=== PATIENT | female | born 1955 | race Caucasian/White ===

== ENCOUNTER 2019-12-15 10:02 | Emergency (ER) | payer BC ==
[~2019-12-15] VITALS: Ht 162.6 cm; Wt 79.4 kg
[~2019-12-15 10:02] MED LIST: ADVAIR; ALLEGRA; CRESTOR; FISH OIL; KEFLEX500 MG PO; PANTOPRAZOLE; SINGULAIR; ZOLOFT; [UNRECOGNIZED DRUG - OTHER]
[2019-12-15] MEDS ORDERED: PROTONIX40 M2 PO (10:20)
[2019-12-15] MEDS ORDERED: ZOLOFT50 M1 PO (10:21)
[2019-12-15] MEDS ORDERED: GABAPENTIN100 MG PO (10:21)
[2019-12-15] MEDS ORDERED: LIPITOR10 MG PO (10:21)
[2019-12-15 10:43] LABS: ABSOLUTE EOSINOPHILS 0.1 thou/uL (0.0-0.7); ABSOLUTE LYMPHOCYTES 1.1 thou/uL (0.8-5.3); ABSOLUTE MONOCYTES 0.7 thou/uL (0.0-1.2); ABSOLUTE NEUTROPHILS 9.3 thou/uL (1.6-8.1); BASOPHILS 0.4 %; EOSINOPHILS 0.7 %; HEMATOCRIT 40.7 % (37.0-47.0); MCH 31.3 pg (26.0-34.0); MCHC 34.3 g/dL (28.0-37.0); MCV 91.3 fL (80.0-100.0); MONOCYTES 5.9 %; MPV 7.8 fl. (7.2-11.1); NUCLEATED RBCS 0 /100WBC; PLATELET COUNT* 303 thou/uL (150-400); RBC 4.46 mil/uL (4.20-5.00); RDW-CV 13.8 % (10.5-14.5); WBC 11.2 thou/uL (4.0-11.0)
[2019-12-15 10:54] LABS: CALCIUM 8.5 mg/dL (8.5-10.1); CREATININE 0.9 mg/dL (0.6-1.3); POTASSIUM 4.1 mmol/L (3.5-5.1)
[2019-12-15 10:58] LABS: URINE BILIRUBIN NEGATIVE (Negative); URINE BLOOD 3+ (Negative); URINE CLARITY CLEAR; URINE COLOR YELLOW; URINE GLUCOSE-RANDOM NEGATIVE (Negative); URINE KETONES NEGATIVE (Negative); URINE LEUKOCYTES-REFLEX NEGATIVE (Negative); URINE NITRITE-REFLEX NEGATIVE (Negative); URINE PROTEIN NEGATIVE (Negative); URINE UROBILINOGEN 0.2 E.U./dl (0.2-1.0)
[2019-12-15 10:58] LABS: ALBUMIN 3.5 g/dL (3.4-5.0); TOTAL BILIRUBIN 0.3 mg/dL (<0.1-1.0); TOTAL PROTEIN 7.1 g/dL (6.4-8.2)
[2019-12-15 11:01] LABS: BACTERIA-REFLEX 1-9 Few /HPF (None Seen); CASTS None Seen /LPF (None Seen); CRYSTALS None Seen /LPF (None Seen); MUCUS 4-6 Moderate strn/LPF (None Seen); SQUAMOUS 4-10 Moderate /LPF (0-3); URINE WBC-REFLEX 0-5 Rare /HPF (0-5)
[2019-12-15] MEDS ORDERED: FLAGYL500 M1 PO (13:08)
[2019-12-15] MEDS ORDERED: CIPROFLOXACIN500 M1 PO (13:08)
[2019-12-15 13:31] VITALS: BP 136/79
== END 2019-12-15 13:32 | disposition home or self-care (01) ==
LOC: M.ERS 10:02
PROVIDERS: Emergency Medicine
DX: K57.92 Diverticulitis of intestine, part unspecified, without perforation or abscess without bleeding (principal); R19.7 Diarrhea, unspecified; E78.5 Hyperlipidemia, unspecified; K21.9 Gastro-esophageal reflux disease without esophagitis; J45.909 Unspecified asthma, uncomplicated; F32.9 Major depressive disorder, single episode, unspecified; Z90.710 Acquired absence of both cervix and uterus